=== PATIENT | female | born 1970 | race Caucasian/White ===

== ENCOUNTER 2017-09-17 13:51 | Inpatient (IN) | payer BC ==
[~2017-09-17 13:51] MED LIST: METF1000 PO; NORE0.354 PO
[2017-09-17] MEDS ORDERED: SODIUM CHLOR 0.9% 1000 ML INJ 1,000 ML IV SCH (14:02)
[2017-09-17] MEDS ORDERED: SODIUM CHLORIDE 0.9% FLUSH 10 ML FLUSH IV FLUSH PRN (14:15)
[2017-09-17] MEDS ORDERED: MORPHINE SULFATE 2 MG/ML INJ IV PUSH PRN (14:15)
[2017-09-17] MEDS ORDERED: NALOXONE HCL 0.4 MG/ML AMP IV PUSH PRN (14:15)
[2017-09-17] MEDS ORDERED: ONDANSETRON HCL 4 MG/2 ML VIAL IVP PRN (14:15)
--- NOTE | 2017-09-17 17:04 | HHI.HP ---
[facility] Service [facility] Primary Care Physician Non-Staff Admission Diagnosis Diagnoses: History of Present Illness right flank pain on and off for past one month got really worse today knew that she had renal stones had lithotripsy about at least 10years ago , had stents then too type of stone was calcium temp 98.2 here no fever home was diagnosed in june with dm, was on metformin, and then had fu visit last week- and added new med was sick over weekend and thought it was from new med for dm was given farsega stopped taking it then no prior no bleeding in stool some blood in urine, not dori hematuria not on water pills dizziness and thought maybe from farsega over weekend Review of Systems Except as stated in HPI: all other systems reviewed are Neg Past Family Social History Past Medical History dm renal stones- lithotripsies, stents hyerlipidemia Past Surgical History lithotripsies renal stents cystoscopies cataract sx Allergies: Coded Allergies: No Known Allergies (Unverified , 09/17/17) Family History mom- heart disease, graves Social History no smoking no etoh / no drugs Physical Exam Physical Exam GENERAL: This is a well-nourished, well-developed patient, in no apparent distress. SKIN: No rashes, ecchymoses or lesions. Cool and dry. HEAD: Atraumatic. Normocephalic. No temporal or scalp tenderness. EYES: Pupils equal round and reactive. Extraocular motions intact. No scleral icterus. No injection or drainage. ENT: Nose without bleeding, purulent drainage or septal hematoma. Throat without erythema, tonsillar hypertrophy or exudate. Uvula midline. Airway patent. NECK: Trachea midline. No JVD or lymphadenopathy. Supple, nontender, no meningeal signs. CARDIOVASCULAR: Regular rate and rhythm without murmurs, gallops, or rubs. RESPIRATORY: Clear to auscultation. Breath sounds equal bilaterally. No wheezes , rales, or rhonchi. GASTROINTESTINAL: Abdomen soft, non-tender, nondistended. No hepato-splenomegaly , or palpable masses. No guarding. MUSCULOSKELETAL: Extremities without clubbing, cyanosis, or edema. No joint tenderness, effusion, or edema noted. No calf tenderness. Negative Homans sign bilaterally. NEUROLOGICAL: Awake and alert. Cranial nerves II through XII intact. Motor and sensory grossly within normal limits. Five out of 5 muscle strength in all muscle groups. Normal speech. Caprini VTE Risk Assessment Caprini Risk Assessment Model Point Value = 1 Point Value = 2 Point Value = 3 Point Value = 5 Age 41-60 Minor surgery BMI > 25 kg/m2 Swollen legs Varicose veins or History of unexplained or recurrent spontaneous Oral contraceptives or hormone replacement Sepsis (< 1 month) Serious lung disease, including pneumonia (< 1 month) Abnormal pulmonary function Acute myocardial infarction Congestive heart failure (< 1 month) History of inflammatory bowel disease Medical patient at bed rest Age 61-74 Arthroscopic surgery Major open surgery (> 45 min) Laparoscopic surgery (> 45 min) Malignancy Confined to bed (> 72 hours) Immobilizing plaster cast Central venous access Age >= 75 History of VTE Family history of VTE Factor V Leiden Prothrombin [id number] Lupus anticoagulant Anticardiolipin antibodies Elevated serum homocysteine Heparin-induced thrombocytopenia Other congenital or acquired thrombophilia Stroke (< 1 month) Elective arthroplasty Hip, pelvis, or leg fracture Acute spinal cord injury (< 1 month) Prophylaxis Regimen Total Risk Factor Score Risk Level Prophylaxis Regimen 0-1 Low Early ambulation 2 Moderate Order ONE of the following: *Sequential Compression Device (SCD) *Heparin 5000 units SQ BID 3-4 Higher Order ONE of the following medications: *Heparin 5000 units SQ TID *Enoxaparin/Lovenox 40 mg SQ daily (WT < 150 kg, CrCl > 30 mL/min) *Enoxaparin/Lovenox 30 mg SQ daily (WT < 150 kg, CrCl > 10-29 mL/min) *Enoxaparin/Lovenox 30 mg SQ BID (WT < 150 kg, CrCl > 30 mL/min) AND/OR *Sequential Compression Device (SCD) 5 or more Highest Order ONE of the following medications: *Heparin 5000 units SQ TID (Preferred with Epidurals) *Enoxaparin/Lovenox 40 mg SQ daily (WT < 150 kg, CrCl > 30 mL/min) *Enoxaparin/Lovenox 30 mg SQ daily (WT < 150 kg, CrCl > 10-29 mL/min) *Enoxaparin/Lovenox 30 mg SQ BID (WT < 150 kg, CrCl > 30 mL/min) AND *Sequential Compression Device (SCD) Assessment and Plan Assessment and Plan renal stones obstructive uropathy acute renal failure dm- took metformin 1000mg today at 2p.m. with meals npo d5 fluids sliding scale coverage urology consult pain control will fu renal function resume lipitor hold metformin and long acting insulin dvt prophylaxis with scd Physician Certification Order for Inpatient Services The services are ordered in accordance with Medicare regulations or non- Medicare payer requirements, as applicable. In the case of services not specified as inpatient-only, they are appropriately provided as inpatient services in accordance with the 2-midnight benchmark. days is the estimated time the patient will need to remain in the hospital, assuming treatment plan goals are met and no additional complications. Renae Jerome MD Sep 17, 2017 17:04
[2017-09-17 17:14] VITALS: BP 151/80; PULSE 78; RESP 18; TEMP 98.2; O2SAT 99
[2017-09-17] MEDS ORDERED: GLUCAGON 1 MG/ML VIAL OTHER PRN (17:15)
[2017-09-17] MEDS ORDERED: DEXTROSE 50% IN WATER 50 ML VIAL(D50) IV PUSH PRN (17:15)
[2017-09-17] MEDS: INSULIN ASPART SUPPLEMENTAL SCALE SQ SCH ×2 (18:29→21:15)
[2017-09-17] MEDS: DEXTROSE 5% IN WATE 1000ML INJ 1,000 ML IV SCH (19:18)
[2017-09-17] MEDS: CIPROFLOXACIN 400 MG PREMIX 200 ML IV SCH (19:18)
[2017-09-17] MEDS ORDERED: ATORVASTATIN 20 MG TAB PO SCH (21:00)
[2017-09-17] MEDS: SODIUM CHLORIDE 0.9% FLUSH 10 ML FLUSH IV FLUSH SCH (21:00)
[2017-09-17 21:05] VITALS: BP 127/75; PULSE 68; RESP 16; TEMP 98.6; O2SAT 95
[2017-09-17 23:15] VITALS: BP 142/68; PULSE 69; RESP 18; TEMP 96.2; O2SAT 97
[2017-09-18] MEDS: INSULIN ASPART SUPPLEMENTAL SCALE SQ SCH ×3 (01:15→08:00)
[2017-09-18 03:46] VITALS: BP 117/68; PULSE 69; RESP 18; TEMP 96.5; O2SAT 100
[2017-09-18] MEDS: DEXTROSE 5% IN WATE 1000ML INJ 1,000 ML IV SCH (04:10)
[2017-09-18] MEDS: CIPROFLOXACIN 400 MG PREMIX 200 ML IV SCH (05:26)
[2017-09-18 07:12] VITALS: BP 119/67; PULSE 60; RESP 20; TEMP 98.1; O2SAT 96
[2017-09-18] MEDS: SODIUM CHLORIDE 0.9% FLUSH 10 ML FLUSH IV FLUSH SCH (07:59)
[2017-09-18] MEDS ORDERED: NORETHINDRONE PO SCH ×2 (09:00)
[2017-09-18 09:22] LABS: AUTOMATED NEUTROPHIL # 4.1 TH/MM3 (1.8-7.7); BASOPHIL % 0.5 % (0.0-2.0); EOSINOPHIL # 0.3 TH/MM3 (0-0.4); EOSINOPHIL % 4.2 % (0.0-4.0); HEMATOCRIT 41.8 % (35.0-46.0); HEMO FLAGS DIFF FINAL; LYMPH % 26.2 % (9.0-44.0); LYMPHOCYTE # 1.8 TH/MM3 (1.0-4.8); MEAN CELL VOLUME 94.1 FL (80.0-100.0); MEAN CORPUSCULAR HEMOGLOBIN 31.4 PG (27.0-34.0); MEAN CORPUSCULAR HGB CONC 33.4 % (32.0-36.0); MONO % 8.8 % (0.0-8.0); NEUT % 60.3 % (16.0-70.0); PLATELET COUNT 241 TH/MM3 (150-450); RED BLOOD COUNT 4.44 MIL/MM3 (4.00-5.30); RED CELL DISTRIBUTION WIDTH 13.2 % (11.6-17.2); WHITE BLOOD COUNT 6.9 TH/MM3 (4.0-11.0)
[2017-09-18 09:51] LABS: BICARBONATE 25.6 MEQ/L (21.0-32.0); POTASSIUM 3.8 MEQ/L (3.5-5.1)
[2017-09-18] MEDS ORDERED: BISACODYL 10 MG SUPP RECTAL PRN (10:00)
[2017-09-18] MEDS ORDERED: ACETAMINOPHEN/HYDROcodone 325 MG/5 MG TAB PO PRN (10:00)
[2017-09-18] MEDS ORDERED: ONDANSETRON HCL 4 MG/2 ML VIAL IVP PRN (10:00)
[2017-09-18] MEDS ORDERED: SODIUM CHLOR 0.9% 1000 ML INJ 1,000 ML IV SCH ×2 (10:00→14:15)
[2017-09-18] MEDS ORDERED: ACETAMINOPHEN/HYDROcodone 325 MG/7.5 MG TAB PO PRN (10:00)
[2017-09-18] MEDS ORDERED: SENNOSIDES 8.6 MG TAB PO PRN (10:00)
[2017-09-18] MEDS ORDERED: ACETAMINOPHEN 325 MG TAB PO PRN ×2 (10:00)
[2017-09-18] MEDS ORDERED: LACTULOSE SYRUP 20 GM/30 ML CUP PO PRN (10:00)
[2017-09-18] MEDS ORDERED: HYDROmorphone HCL PF 2 MG/ML VIAL ONE (11:51)
[2017-09-18] MEDS ORDERED: ONDANSETRON HCL 4 MG/2 ML VIAL IV PUSH ONE (12:00)
[2017-09-18] MEDS ORDERED: LACTATED RINGER'S 1000 ML INJ 1,000 ML IV ONE (12:00)
[2017-09-18] MEDS ORDERED: INSULIN ASPART SUPPLEMENTAL SCALE SQ SCH (12:00)
[2017-09-18] MEDS ORDERED: LIDOCAINE HCL 1% PF 5 ML AMPULE OTHER ONE (12:00)
[2017-09-18] MEDS ORDERED: PROPOFOL 200 MG/20 ML AMP IV ONE (12:00)
[2017-09-18] MEDS ORDERED: ePHEDrine/NS 25 MG/5 ML SYR IV ONE (12:00)
[2017-09-18] MEDS ORDERED: SODIUM CHLORIDE 0.9% 20 ML VIAL IV ONE (12:00)
[2017-09-18] MEDS ORDERED: DEXAMETHASONE SOD PHOS 4 MG/ML VIAL IV ONE (12:00)
[2017-09-18 12:22] VITALS: BP 172/83; PULSE 67; RESP 19; TEMP 98.1; O2SAT 97
--- NOTE | 2017-09-18 12:39 | MB ---
cc: ZEENAT ARREGUIN DATE OF CONSULTATION: 09/18/2017 HISTORY OF PRESENT ILLNESS Marichuy Chávez is a pleasant 47-year-old female who presented with right-sided renal colic yesterday evening associated with some nausea. A CT scan in the emergency room demonstrated a 1 cm right ureteral calculus with right-sided hydroureteronephrosis and multiple stones within the right kidney as well as in the left kidney. The patient has a known history of stones and has had prior intervention for stones in the past. She was recently diagnosed with diabetes and has been on metformin for the last 3-4 months. She states that her prior stone type was some type of calcium stone but she is unsure as to the exact type. She denies any fever or chills at the present time. PAST MEDICAL HISTORY Her medical history includes: 1. Diabetes mellitus recently diagnosed. 2. History of renal stones with prior intervention. 3. Hyperlipidemia. PAST SURGICAL HISTORY 1. Cystoscopy with stent placement followed by lithotripsy. 2. Cataract surgery. ALLERGIES She has NO KNOWN DRUG ALLERGIES. FAMILY HISTORY Noted for heart disease on her mother's side. SOCIAL HISTORY She denies smoking, drinking or using drugs. REVIEW OF SYSTEMS She notes right-sided flank pain, some nausea, no vomiting. No fever or chills. No weight loss or weight gain. Denies any history of skin lesions, gait disturbances, bleeding disorders. Denies chest pain. Denies shortness of breath. Does note some right-sided lower abdominal pain. Denies any lower extremity swelling. Denies any psychiatric problems. Denies any paresthesias. The remaining review of systems were reviewed and are negative. PHYSICAL EXAMINATION VITAL SIGNS: Temperature is 98.1, heart rate 60, respiratory rate 20, 119/67 is her blood pressure, 96% on room air. GENERAL: She is a well-developed, well-nourished 47-year-old female, in no acute distress. HEENT: Normocephalic, atraumatic. Pupils are equal, round, reactive to light. Extraocular movements intact. NECK: Supple. HEART: Regular rate and rhythm. LUNGS: Clear. ABDOMEN: Soft, nontender, nondistended. There is right-sided CVA tenderness noted. : Normal female external genitalia. EXTREMITIES: Show no evidence of cyanosis, clubbing or edema. Cranial nerves II-XII are intact. PSYCHE: Generalized mood. SKIN: No skin lesions were identified. LABORATORY VALUES White count 6.9, hemoglobin 13.9, hematocrit 41.8, platelet count is 241, sodium 139, potassium 3.8, chloride 106, CO2 25.6, BUN 13, creatinine 1.28, glucose of 127. IMAGING STUDIES Demonstrates bilateral renal calculi with a 1 cm stone in the right lower ureter causing hydroureteronephrosis. ASSESSMENT A 47-year-old female with history of nephrolithiasis, presents with a 1 cm obstructing right lower ureteral calculus with right-sided hydroureteronephrosis and bilateral renal stones. The patient will undergo cystoscopy, bilateral stent placement followed by right extracorporeal shockwave lithotripsy to remove her right ureteral stone burden. Risks and benefits were discussed including bleeding, infection, and she is willing to proceed. Zeenat MANZANARES/CHUCKY /11:49 AM /12:33 PM
[2017-09-18] MEDS ORDERED: IOHEXOL 350 MG/ML 50 ML BTL (for RAD DIAG) OTHER ONE (12:57)
[2017-09-18] MEDS ORDERED: DO NOT ADM ANY ANTICOAGULANT DRUGS PRN (13:28)
[2017-09-18] MEDS ORDERED: HYDR-3580 PO (13:28)
--- NOTE | 2017-09-18 13:29 | PD.OP ---
Operative Report Date of Surgery: Sep 18, 2017 Preoperative Diagnosis: Bilateral renal calculi with right hydroureteronephrosis and 1 cm right lower ureteral stone Postoperative Diagnosis: Same Procedure: Cystoscopy with bilateral retrograde study with bilateral double-J stent insertion followed by right extracorporeal shockwave lithotripsy Anesthesia: Gen. LMA Surgeon: Horacio Brandon Master Control Supervisor(s): None Resident Surgeon: None Operation and Findings: 47-year-old female presented to the emergency room with bilateral renal calculi with right sided hydroureteronephrosis and a 1 cm obstructing lower right ureteral stone. Decision made to bring the patient to the operating room and undergo cystoscopy and bilateral double-J stent insertion followed by right extracorporeal shockwave lithotripsy of her lower right 1 cm ureteral stone. Risk and benefits were discussed preoperatively and she was willing to proceed. Patient is brought to operating room identified by myself as Marichuy Chávez. She was prepped and draped in usual sterile fashion and placed in the dorsal lithotomy position. She received preprocedure antibiotics followed by general LMA anesthesia. Under fluoroscopic imaging guidance, the stone was visualized in the lower ureter. 22 Malawian cystoscopy was inserted bladder inman cystoscopy did not reveal any abnormalities. Left ureteral orifice was identified and a 4 Malawian Buck catheter was inserted in the left ureteral orifice and a retrograde pyelogram was performed. Stones were visualized in the kidney without any evidence of hydronephrosis or obstruction. A 0.53 sensor wire was then passed through the open-ended catheter with a good curl in the kidney. The 24 Malawian stent was slid over the wire in place with a good curl in the kidney and bladder. The wire was removed. Attention was then directed to the right ureteral orifice. A 5 Malawian opening catheter inserted into the right ureteral orifice and a retrograde pyelogram was performed. The stone was visualized in the lower ureter with a filling defect visualized. Hydroureteronephrosis was also identified. A 0.35 sensor wire was then passed through the opening catheter in place with a good curl in the kidney. A 6 Malawian 24 cm right double-J stent was then passed over the wire with a good curl in the kidney and bladder. The bladder was evacuated and the scope was removed. She was then placed in the supine position. Extracorporeal shockwave lithotripsy then proceeded with good fragmentation visualized of the lower right ureteral stone. She tolerated the procedure well and was extubated and transferred to remove stable condition. She'll follow-up in the office in a few weeks and obtain a KUB x-ray prior with determination of further intervention to remove her residual stone burden. Horacio Brandon DO Sep 18, 2017 13:29
--- NOTE | 2017-09-18 14:38 | HHI.PR ---
Subjective Remarks Follow-up obstructive uropathy. Seen in PACU. States she feels heavy from anesthesia. Denies abdominal pain. Discussed with RN, she can be discharged later today if she is tolerating by mouth, pain control with by mouth medications and ambulating. Patient aware. Follow-up renal function outpatient Objective Vitals Vital Signs Date Time Temp Pulse Resp B/P (MAP) Pulse Ox O2 Delivery O2 Flow Rate FiO2 09/18/17 14:30 69 16 121/63 (82) 92 Room Air 09/18/17 14:00 68 16 119/68 (85) 93 Room Air 09/18/17 13:45 71 16 127/72 (90) 94 Room Air 09/18/17 13:30 86 16 132/69 (90) 99 Room Air 09/18/17 13:25 97.7 86 16 133/66 (88) 99 Nasal Cannula 2 09/18/17 12:22 98.1 67 19 172/83 (112) 97 09/18/17 07:12 98.1 60 20 119/67 (84) 96 09/18/17 03:46 96.5 69 18 117/68 (84) 100 09/17/17 23:15 96.2 69 18 142/68 (92) 97 09/17/17 21:05 98.6 68 16 127/75 (92) 95 09/17/17 17:14 98.2 78 18 151/80 (103) 99 I/O 09/17/17 09/17/17 09/17/17 09/18/17 09/18/17 09/18/17 07:00 15:00 23:00 07:00 15:00 23:00 Intake Total 1200 ml Output Total 0 ml Balance 1200 ml Intake IV Total 200 ml Other 1000 ml Output Estimated Blood Loss 0 ml Result Diagram: 09/18/17 0845 09/18/17 0845 Objective Remarks GENERAL: Well-developed, well-nourished in no distress SKIN: Warm and dry. CARDIOVASCULAR: Regular rate and rhythm. RESPIRATORY: No accessory muscle use. Clear to auscultation. Breath sounds equal bilaterally. GASTROINTESTINAL: Abdomen soft, non-tender, nondistended. Hepatic and splenic margins not palpable. MUSCULOSKELETAL: Extremities without clubbing, cyanosis, or edema. No obvious deformities. Keloid LLQ NEUROLOGICAL: Awake and alert. No obvious cranial nerve deficits. Motor grossly within normal limits. Five out of 5 muscle strength in the arms and legs. Normal speech. PSYCHIATRIC: Appropriate mood and affect; insight and judgment normal. Procedures Cystoscopy with bilateral retrograde study with bilateral double-J stent insertion followed by right extracorporeal shockwave lithotripsy A/P Problem List: (1) Obstructive uropathy ICD Code: N13.9 - Obstructive and reflux uropathy, unspecified Assessment and Plan Obstructive uropathy status post Cystoscopy with bilateral retrograde study with bilateral double-J stent insertion followed by right extracorporeal shockwave lithotripsy. Stable continue IV hydration and pain management with Lortab and IV morphine and ciprofloxacin. Counseled regarding narcotic Acute kidney injury secondary to above. Nonoliguric. Avoid nephrotoxins. Outpatient follow-up Diabetes mellitus. Monitor fingerstick with sliding scale coverage. Hold metformin for now secondary to acute kidney injury Hyperlipidemia. Low-cholesterol diet Rafael prophylaxis with SCD and early ambulation Discharge Planning Discharge patient to home Condition on discharge: Improved Regular Diet as tolerated Ad Ebony activity no driving Rx written: Percocet, Levaquin and Pyridium Follow-up with primary care physician and Yonathan Johnson MD Sep 18, 2017 14:38
[2017-09-18 14:43] LABS: BICARBONATE 25.1 MEQ/L (21.0-32.0); MAGNESIUM 1.8 MG/DL (1.5-2.5)
--- NOTE | 2017-09-18 14:43 | HHI.DCPOC ---
Discharge Care Plan Diagnosis: (1) Obstructive uropathy Your Health Problems Are: Difficulty with ADL Exercise Tolerance Goals to Promote Your Health * To prevent worsening of your condition and complications * To maintain your health at the optimal level Directions to Meet Your Goals Take your medications as prescribed Follow your dietary instruction Follow activity as directed Keep your appointments as scheduled Take your immunizations and boosters as scheduled If your symptoms worsen call your PCP, if no PCP go to Urgent Care Center or Emergency Room Smoking is Dangerous to Your Health. Avoid second hand smoke Call the 24-hour hour crisis hotline for domestic abuse at Yonathan Shelley MD Sep 18, 2017 14:43
[2017-09-18 14:45] LABS: POTASSIUM 3.9 MEQ/L (3.5-5.1)
[2017-09-18] MEDS ORDERED: MORPHINE SULFATE 2 MG/ML INJ IV PRN (15:00)
[2017-09-18] MEDS ORDERED: oxyCODONE/ACETAMINOPHEN 5 MG/325 MG TAB PO PRN (15:00)
[2017-09-18] MEDS ORDERED: BELLADONNA ALKALOIDS/OPIUM 60 MG SUPP RECTAL PRN (15:00)
[2017-09-18 15:34] VITALS: BP 134/78; PULSE 80; RESP 18; TEMP 97.6; O2SAT 96
[2017-09-18] MEDS ORDERED: DOCUSATE SODIUM 50 MG/SENNA 8.6 MG TAB PO SCH (21:00)
== END 2017-09-19 00:13 | disposition home or self-care (01) | DRG 691 ==
LOC: HOR 16:05 → NEPHCDU 16:15 → OBSVTOIN 16:15 → N07B 09-18 11:41
PROVIDERS: ADMIT Internal Medicine; ATTEND Internal Medicine
PROC: BT141ZZ Fluoroscopy of Kidneys, Ureters and Bladder using Low Osmolar Contrast (ICD-10-PCS; 2017-09-18)
PROC: 0TF6XZZ Fragmentation in Right Ureter, External Approach (ICD-10-PCS; principal; 2017-09-18 12:00)
PROC: 0T788DZ Dilation of Bilateral Ureters with Intraluminal Device, Via Natural or Artificial Opening Endoscopic (ICD-10-PCS; 2017-09-18 12:00)
DX: N13.2 Hydronephrosis with renal and ureteral calculous obstruction (principal); N17.9 Acute kidney failure, unspecified; E11.9 Type 2 diabetes mellitus without complications; E78.5 Hyperlipidemia, unspecified; Z79.84 Long term (current) use of oral hypoglycemic drugs; Z87.442 Personal history of urinary calculi
CPT/HCPCS: 50590; 74176; 74420; 80048; 81001; 82948; 83735; 84702; 85025; 96361; 96374; 96375; 99281; C1769; J0744; J1100; J1170; J1885; J2270; J2405; J7030; J7070; J7120; Q9967

== ENCOUNTER → 2017-10-17 | Day surgery (SDC) | payer BC ==
[~2017-10-17] VITALS: Ht 170.2 cm; Wt 91.1 kg
[~2017-10-17] MED LIST changes: +*morphine SULFATE 8 MG/ML PERIprocedure ONLY ONE; +AMPICILLIN 1 GM/NS 100 ML IV SCH; +BELLADONNA ALKALOIDS/OPIUM 60 MG SUPP RECTAL ONE; +BELLADONNA ALKALOIDS/OPIUM 60 MG SUPP RECTAL SCH; +CHLORHEXIDINE GLUCONATE 2 % 1 PACK (2 CLOTHS) TOPICAL PRN; +CINN500C14 PO; +DO NOT ADM ANY ANTICOAGULANT DRUGS PRN; +FUROSEMIDE 20 MG/2 ML VIAL IV ONE; +GENTAMICIN INJ 240 MG in SODIUM CHLORIDE 0.9% INJ 100 ML IV SCH; +INSULIN HUMAN REGULAR 1,000 UNITS/10 ML VIAL SQ PRN; +IOHEXOL 350 MG/ML 50 ML BTL (for RAD DIAG) OTHER ONE; +LACTATED RINGER'S 1000 ML IV PRN; +LIPI40TA PO; -METF1000 PO; +METF500T PO; +METOPROLOL TARTRATE 25 MG TAB PO PRN; +MORPHINE SULFATE 2 MG/ML INJ IV PRN; +ONDANSETRON HCL 4 MG/2 ML VIAL IV PRN; +POVIDONE IODINE 5% (ANTISEPSIS KIT) 4 APPLICATIONS EACH NARE PRN; +SODIUM CHLORID 0.9% 500 ML IV PRN; +oxyCODONE/ACETAMINOPHEN 5 MG/325 MG TAB PO PRN
--- NOTE | 2017-10-17 06:50 | RADRPT ---
EXAM DATE/TIME: 10/17/2017 06:12 [facility] COMPARISON: No previous studies available for comparison. INDICATIONS : Evaluate for pneumonia, pneumothorax, or other communicable disease. Pre-op lithotripcy. MEDICAL HISTORY : Renal calculi. SURGICAL HISTORY : Stents. ENCOUNTER: Initial ACUITY: 1 day PAIN SCORE: 0/10 LOCATION: abdomen. FINDINGS: Bilateral double-J stents in place. Multiple left calcified renal stones, at least 7 in number, david uring up to 1 cm. On the right side, there are several small calcified stones which measure 1.3 cm i n aggregate, superimposed upon the mid pole. Calcified phlebolith in right pelvis. Moderate degener ative changes in the lower lumbar spine. CONCLUSION: Bilateral calcified renal stones and bilateral double-J stents. Aleksandr Randolph MD on October 17, 2017 at 6:48 Board Certified Radiologist. This report was verified electronically.
--- NOTE | 2017-10-17 11:03 | PD.OP ---
Operative Report Date of Surgery: Oct 17, 2017 Preoperative Diagnosis: Right ureteral and renal calculi Postoperative Diagnosis: Same Procedure: Cystoscopy, right retrograde pyelogram, right ureteroscopy with laser lithotripsy, stone extraction with with right double-J stent exchange Anesthesia: JETA Surgeon: Horacio Brandon Patent Searcher(s): None Resident Surgeon: None Operation and Findings: 47-year-old female with history of bilateral renal and ureteral stones. Patient underwent right extraportal shockwave lithotripsy in the past and now presents with for ureteroscopy. Risk and benefits were discussed preoperatively as well as the need for ureter procedure to remove the residual stone burden. She was willing to proceed. Patient was brought to the operating room and identified by myself as Shayna Chávez. She is placed in dorsal lithotomy position, prepped and draped in usual sterile fashion, received preprocedure antibiotics and general endotracheal tube anesthesia was administered. 22 Taiwanese cystoscope was inserted in the bladder and using the alligator grasper the right ureteral stent was brought to the urethral meatus. A 0.35 sensor wire was inserted through the stent and the stent was removed over the wire. A 5 Taiwanese opening catheter present slid over the wire up into the distal ureter and the wire was removed. A retrograde pyelogram was performed demonstrating some residual stone in the lower distal ureter as well as in the kidney. The wire was then passed through the open-ended catheter and the open-ended catheter was then removed. The rigid ureteroscope was then passed up along the wire into the distal ureter and using a 200 laser fiber at a setting of 10 and 1000 the stone was then broken up. Using the nitinol basket the stone fragments were then removed. A navigator ureteral access sheath was then passed over the wire up into the proximal ureter. The flexible ureteroscope was then utilized and passed up the ureter into the lower pole of the kidney and stone fragments were retrieved using the nitinol basket. This was also done in the upper pole. There was one stone that was approximately 7- 8 mm in size that was stuck in a upper pole calyx. Using the basket multiple pole attempts were made to try to free the stone out of the calyx but this was unsuccessful. The 200 laser fiber was then used to try to blast the stone within the small calyx and this was done to some extent. Bleeding began from this area and I was unable to retrieve all the stone fragments from the upper pole calyx. Decision made then to place a stent. A 6 Taiwanese 22 cm right double -J stent was passed over the wire leaving a good curl in the kidney and bladder. The bladder was evacuated and she was awoken next abated transferred Stable condition. In 1 month, she will need to undergo ESWL to break up the residual right upper pole fragment. After that is completed, she will need ureteroscopy on the left side in attempt to remove the residual stone burden within the left kidney in the future. Horacio Brandon DO Oct 17, 2017 11:03
[2017-10-17 13:45] VITALS: BP 103/56; PULSE 60; RESP 16; TEMP 97.4; O2SAT 95
== END | disposition home or self-care (01) ==
LOC: HSDC 05:48
PROVIDERS: ATTEND Urology
DX: N20.2 Calculus of kidney with calculus of ureter (principal); E11.9 Type 2 diabetes mellitus without complications; Z79.84 Long term (current) use of oral hypoglycemic drugs
CPT/HCPCS: 00918; 52356; 74000; 82365; 82370; 88300; C1769; J0290; J1580; J1940; J2270; J7120; Q9967

== ENCOUNTER → 2017-11-20 | Day surgery (SDC) | payer BC ==
[~2017-11-20] VITALS: Ht 170.2 cm; Wt 94.5 kg
[~2017-11-20] MED LIST changes: -*morphine SULFATE 8 MG/ML PERIprocedure ONLY ONE; -AMPICILLIN 1 GM/NS 100 ML IV SCH; -BELLADONNA ALKALOIDS/OPIUM 60 MG SUPP RECTAL ONE; -BELLADONNA ALKALOIDS/OPIUM 60 MG SUPP RECTAL SCH; -FUROSEMIDE 20 MG/2 ML VIAL IV ONE; -GENTAMICIN INJ 240 MG in SODIUM CHLORIDE 0.9% INJ 100 ML IV SCH; -INSULIN HUMAN REGULAR 1,000 UNITS/10 ML VIAL SQ PRN; -IOHEXOL 350 MG/ML 50 ML BTL (for RAD DIAG) OTHER ONE; -ONDANSETRON HCL 4 MG/2 ML VIAL IV PRN; +ONDANSETRON HCL 4 MG/2 ML VIAL IV PUSH PRN; +ceFAZolin 1,000 MG/NS 100 ML IV SCH
--- NOTE | 2017-11-20 09:43 | RADRPT ---
EXAM DATE/TIME: 11/20/2017 08:38 [facility] COMPARISON: No previous studies available for comparison. INDICATIONS : Pre-op for bilateral lithotripsy. MEDICAL HISTORY : Diabetes mellitus type II. SURGICAL HISTORY : Bilateral lithotripsy. ENCOUNTER: Subsequent ACUITY: 1 day PAIN SCORE: 0/10 LOCATION: Abdomen. FINDINGS: Two view abdomen demonstrates the patient has double-J ureteral catheters in good position. The left catheter may be slightly in the proximal ureter. There are numerous calcifications bilaterally whic h are visible on plain film. There are two collections in the right kidney and multiple stones in th e left kidney. Bowel gas pattern is normal. Bones are unremarkable. CONCLUSION: Multiple stones bilaterally. The left catheter may be slightly inferiorly displaced. Rangel Loo MD on November 20, 2017 at 9:34 Board Certified Radiologist. This report was verified electronically.
[2017-11-20 10:03] LABS: AUTOMATED NEUTROPHIL # 5.3 TH/MM3 (1.8-7.7); BASOPHIL % 0.5 % (0.0-2.0); EOSINOPHIL # 0.5 TH/MM3 (0-0.4); EOSINOPHIL % 6.1 % (0.0-4.0); HEMATOCRIT 37.9 % (35.0-46.0); HEMOGLOBIN 12.8 GM/DL (11.6-15.3); MEAN CELL VOLUME 91.3 FL (80.0-100.0); MEAN CORPUSCULAR HEMOGLOBIN 30.9 PG (27.0-34.0); MEAN CORPUSCULAR HGB CONC 33.9 % (32.0-36.0); MEAN PLATELET VOLUME 10.3 FL (7.0-11.0); MONO % 6.9 % (0.0-8.0); MONOCYTE # 0.6 TH/MM3 (0-0.9); NEUT % 62.5 % (16.0-70.0); PLATELET COUNT 276 TH/MM3 (150-450); RED BLOOD COUNT 4.15 MIL/MM3 (4.00-5.30); WHITE BLOOD COUNT 8.5 TH/MM3 (4.0-11.0)
--- NOTE | 2017-11-20 13:17 | PD.OP ---
Operative Report Date of Surgery: Nov 20, 2017 Preoperative Diagnosis: Right renal calculi Postoperative Diagnosis: Same Procedure: Right extracorporeal shockwave lithotripsy Anesthesia: MAC Surgeon: Horacio Brandon Rn Occupational(s): None Resident Surgeon: None Operation and Findings: 47-year-old female with history of bilateral renal calculi and a right ureteral calculus. In the past she underwent right ureteroscopy with laser lithotripsy and multiple stone extraction with bilateral stent insertion. There were a few residual stones on the right side which I was unable to clear with a ureteroscope. Decision was made to bring her to the operating room to undergo right extraportal shockwave lithotripsy of the remaining right renal fragments. Patient was brought to the operating room and identified by myself as Shayna Chávez. She is placed on the operating table in the supine position. She received preprocedure antibiotics and MAC anesthesia was administered. Under fluoroscopic imaging guidance the stones in the right kidney were visualized and ESWL therapy commenced. Both stones underwent lithotripsy. The stones were located in the upper and lower poles. Good fragmentation of both stones was visualized under fluoroscopic imaging. She tolerated the procedure well. She was awoken and transferred to recovery room in stable condition. She will follow-up in one month and undergo left extracorporeal shockwave lithotripsy on that side. On both her CT scan and KUB multiple stones demonstrated on the left side which may be very difficult to remove in 1 setting with ureteroscopy. Horacio Brandon DO Nov 20, 2017 13:17
[2017-11-20 13:52] VITALS: BP 141/76; PULSE 60; RESP 18; TEMP 97.5; O2SAT 100
== END | disposition home or self-care (01) ==
LOC: HSDC 08:20
PROVIDERS: ATTEND Urology
DX: N20.0 Calculus of kidney (principal)
CPT/HCPCS: 00873; 50590; 74018; 85025; J0690; J3010; J7120

== ENCOUNTER → 2018-01-01 | Day surgery (SDC) | payer BC ==
[~2018-01-01] MED LIST changes: +DEXAMETHASONE SOD PHOS 4 MG/ML VIAL IV ONE; -DO NOT ADM ANY ANTICOAGULANT DRUGS PRN; +LIDOCAINE HCL 1% PF 5 ML SYRINGE OTHER ONE; +MIDAZOLAM HCL 2 MG/2 ML VIAL ONE; -MORPHINE SULFATE 2 MG/ML INJ IV PRN; +ONDANSETRON HCL 4 MG/2 ML VIAL IV ONE; +PERC5TAB12 PO; +PROPOFOL 200 MG/20 ML AMP IV ONE; -ceFAZolin 1,000 MG/NS 100 ML IV SCH
[2018-01-01 06:22] LABS: AUTOMATED NEUTROPHIL # 4.8 TH/MM3 (1.8-7.7); BASOPHIL # 0.1 TH/MM3 (0-0.2); BASOPHIL % 0.8 % (0.0-2.0); EOSINOPHIL # 0.6 TH/MM3 (0-0.4); EOSINOPHIL % 7.1 % (0.0-4.0); HEMOGLOBIN 12.7 GM/DL (11.6-15.3); LYMPH % 24.2 % (9.0-44.0); LYMPHOCYTE # 1.9 TH/MM3 (1.0-4.8); MEAN CELL VOLUME 88.4 FL (80.0-100.0); MEAN CORPUSCULAR HEMOGLOBIN 30.3 PG (27.0-34.0); MEAN CORPUSCULAR HGB CONC 34.3 % (32.0-36.0); MEAN PLATELET VOLUME 9.9 FL (7.0-11.0); MONOCYTE # 0.5 TH/MM3 (0-0.9); NEUT % 61.9 % (16.0-70.0); PLATELET COUNT 245 TH/MM3 (150-450); RED BLOOD COUNT 4.19 MIL/MM3 (4.00-5.30); RED CELL DISTRIBUTION WIDTH 13.8 % (11.6-17.2); WHITE BLOOD COUNT 7.8 TH/MM3 (4.0-11.0)
--- NOTE | 2018-01-01 06:32 | RADRPT ---
EXAM DATE/TIME: 01/01/2018 05:52 [facility] COMPARISON: ABDOMEN KUB ONLY, November 20, 2017, 8:38. INDICATIONS : Pre op lithotripsy. MEDICAL HISTORY : None. SURGICAL HISTORY : None. ENCOUNTER: Initial ACUITY: 1 day PAIN SCORE: 0/10 LOCATION: Bilateral abdomen FINDINGS: Bilateral double-J ureteral stents in place. The proximal left ureteral stent appears slightly displa jhonatan but stable in position. Numerous bilateral renal calcifications with 2 dominant calcified calculi in the right and 7 dominant calcified calculi in the left. Nonobstructive bowel gas pattern. Osseous structures are intact. CONCLUSION: 1. Stable double-J ureteral stents with bilateral renal calculi, as above. Pavan Monahan MD on January 01, 2018 at 6:28 Board Certified Radiologist. This report was verified electronically.
--- NOTE | 2018-01-01 08:30 | PD.OP ---
Operative Report Date of Surgery: Jan 01, 2018 Preoperative Diagnosis: (1) Renal calculus, left Postoperative Diagnosis: (1) Renal calculus, left Procedure: Extracorporeal shockwave lithotripsy left upper pole renal calculus Anesthesia: General Surgeon: Garfield Ramírez Grinder Operator Surface Tool(s): None Operation and Findings: Indication for procedure: Case of a pleasant 47-year-old female with history bilateral renal calculi who presents today for left-sided shockwave lithotripsy. Operative procedure in detail: Patient was brought to the operating room suite and placed supine on the OR table. She was then placed under general anesthesia. After an appropriate timeout was undertaken I proceeded with localizing the patient's left upper pole renal calculus with fluoroscopy. There were multiple additional stones seen throughout the left kidney. I then proceeded with shockwave lithotripsy utilizing the Choudhary Piezolith mobile lithotripsy device. The patient received a total of 3000 shocks to the upper pole calculus with a maximum power level setting of 20. At conclusion of the procedure the stone was spread out somewhat consistent release a partial degree of fragmentation. The patient tolerated the procedure without complications and was subsequent transferred to the PACU in satisfactory condition. Garfield Ramírez MD Jan 01, 2018 08:30
[2018-01-01 09:53] VITALS: BP 139/80; PULSE 62; RESP 16; TEMP 97.9; O2SAT 100
== END | disposition home or self-care (01) ==
LOC: HSDC 05:27
PROVIDERS: ATTEND Urology
DX: N20.0 Calculus of kidney (principal); E11.9 Type 2 diabetes mellitus without complications; E78.00 Pure hypercholesterolemia, unspecified; Z01.818 Encounter for other preprocedural examination
CPT/HCPCS: 00872; 50590; 74018; 85025; J1100; J2250; J2405; J3010; J7120

== ENCOUNTER → 2018-02-05 | Day surgery (SDC) | payer BC ==
[~2018-02-05] VITALS: Ht 170.2 cm; Wt 92.2 kg
[~2018-02-05] MED LIST changes: +APREPITANT 40 MG CAP ONE; -DEXAMETHASONE SOD PHOS 4 MG/ML VIAL IV ONE; +DO NOT ADM ANY ANTICOAGULANT DRUGS PRN; +FUROSEMIDE 40 MG/4 ML VIAL ONE; -LIDOCAINE HCL 1% PF 5 ML SYRINGE OTHER ONE; +MORPHINE SULFATE 2 MG/ML INJ IV PRN; -ONDANSETRON HCL 4 MG/2 ML VIAL IV ONE; +ONDANSETRON HCL 4 MG/2 ML VIAL IV PRN; -ONDANSETRON HCL 4 MG/2 ML VIAL IV PUSH PRN; -PERC5TAB12 PO; +ceFAZolin 1,000 MG/NS 100 ML IV SCH
--- NOTE | 2018-02-05 07:51 | RADRPT ---
EXAM DATE/TIME: 02/05/2018 07:34 [place] COMPARISON: ABDOMEN KUB ONLY, January 01, 2018, 5:52. INDICATIONS : Pre op ESWL. MEDICAL HISTORY : None. SURGICAL HISTORY : None. ENCOUNTER: Initial ACUITY: 1 day PAIN SCORE: 0/10 LOCATION: Left abdomen. FINDINGS: Supine view of the abdomen was performed. The exam is compared to prior study of 12/24/2017. Bilateral double-J stent remain in place. The stents are unchanged in position. There continue be multiple antony cifications throughout the left kidney characteristic of kidney stones. The largest stone measures 1. 3 cm on the lower pole. There is at least 2, 1 cm stones in the midpole and there are a few smaller f aint calcifications along the upper pole. There is an 8 mm stone along the upper pole the right kidne y. These findings are all stable compared to the prior examination. The bony structures remain intact . The bowel gas pattern is within normal limits.. CONCLUSION: 1. Stable bilateral double-J stent remain in place. 2. Stable bilateral renal stones, left greater than right. Rachid Jernigan MD on February 05, 2018 at 7:45 Board Certified Radiologist. This report was verified electronically.
[2018-02-05 08:05] LABS: AUTOMATED NEUTROPHIL # 4.6 TH/MM3 (1.8-7.7); BASOPHIL # 0.1 TH/MM3 (0-0.2); BASOPHIL % 0.9 % (0.0-2.0); EOSINOPHIL # 0.4 TH/MM3 (0-0.4); EOSINOPHIL % 5.6 % (0.0-4.0); HEMOGLOBIN 12.7 GM/DL (11.6-15.3); LYMPH % 21.2 % (9.0-44.0); LYMPHOCYTE # 1.5 TH/MM3 (1.0-4.8); MEAN CORPUSCULAR HEMOGLOBIN 29.2 PG (27.0-34.0); MEAN CORPUSCULAR HGB CONC 33.5 % (32.0-36.0); MEAN PLATELET VOLUME 10.2 FL (7.0-11.0); MONO % 6.6 % (0.0-8.0); MONOCYTE # 0.5 TH/MM3 (0-0.9); NEUT % 65.7 % (16.0-70.0); PLATELET COUNT 258 TH/MM3 (150-450); RED BLOOD COUNT 4.37 MIL/MM3 (4.00-5.30); RED CELL DISTRIBUTION WIDTH 14.1 % (11.6-17.2)
--- NOTE | 2018-02-05 10:40 | PD.OP ---
Operative Report Date of Surgery: Feb 05, 2018 Preoperative Diagnosis: Left renal calculi Postoperative Diagnosis: Same Procedure: Left extracorporeal shockwave lithotripsy Anesthesia: MAC Surgeon: Horacio Brandon Inspector Bullet Slugs(s): None Resident Surgeon: None Operation and Findings: 47-year-old female with recurrent renal calculi on the left side elected to undergo repeat extracorporeal shockwave lithotripsy. Risk and benefits were discussed preoperatively and she is willing to proceed. Patient was brought to the operating room and identified by myself as Marichuy Erwin. She was placed on the operating table in the supine position. She received preprocedure antibiotics and MAC anesthesia was administered. Under fluoroscopic imaging guidance the stones were visualized and ESWL therapy commenced. The largest stone being in the lower pole was fragmented with a total of 2000 shocks and then the other 2 stones located in the mid and upper poles received 500 shocks each. This is a total of 3000 shocks. Power level was up to a level of 5. Good fragmentation of the stones were visualized under fluoroscopic imaging guidance. She tolerated the procedure well. She will follow-up in the office in a few weeks and obtain a CT scan of the abdomen and pelvis prior and will need ureteroscopy in the future to remove her residual stone burden if present. Horacio Brandon DO Feb 05, 2018 10:40
[2018-02-05 11:39] VITALS: BP 147/81; PULSE 68; RESP 18; TEMP 97.8; O2SAT 100
== END | disposition home or self-care (01) ==
LOC: HSDC 06:55
PROVIDERS: ATTEND Urology
DX: N20.0 Calculus of kidney (principal); E78.00 Pure hypercholesterolemia, unspecified; E11.9 Type 2 diabetes mellitus without complications; Z79.84 Long term (current) use of oral hypoglycemic drugs
CPT/HCPCS: 00873; 50590; 74018; 85025; J1940; J2250; J3010; J7120; J8501

== ENCOUNTER → 2018-02-21 | Day surgery (SDC) | payer BC ==
[~2018-02-21] VITALS: Ht 170.2 cm; Wt 92.3 kg
[~2018-02-21] MED LIST changes: +ACETAMINOPHEN 1000 MG/100 ML 100 ML IV ONE; -APREPITANT 40 MG CAP ONE; +DEXAMETHASONE SOD PHOS 4 MG/ML VIAL IV ONE; -FUROSEMIDE 40 MG/4 ML VIAL ONE; +GENTAMICIN SULFATE 80 MG/2 ML VIAL ONE; +GLYCOPYRROLATE 1 MG/5 ML SYRINGE IV PUSH ONE; +IOHEXOL 350 MG/ML 50 ML BTL (for RAD DIAG) OTHER ONE; +LIDOCAINE HCL 1% PF 5 ML SYRINGE OTHER ONE; -MORPHINE SULFATE 2 MG/ML INJ IV PRN; +NEOSTIGMINE 5 MG/5 ML SYRINGE IV PUSH ONE; +ONDANSETRON HCL 4 MG/2 ML VIAL IV ONE; -ONDANSETRON HCL 4 MG/2 ML VIAL IV PRN; +ROCURONIUM INJ 50 MG/5 ML SYRINGE IV PUSH ONE; -ceFAZolin 1,000 MG/NS 100 ML IV SCH; +ceFAZolin 2 GM PREMIX 50 ML ONE; -oxyCODONE/ACETAMINOPHEN 5 MG/325 MG TAB PO PRN
--- NOTE | 2018-02-21 14:21 | PD.OP ---
Operative Report Date of Surgery: Feb 21, 2018 Preoperative Diagnosis: Bilateral renal calculi Postoperative Diagnosis: Same Procedure: Cystoscopy with bilateral retrograde pyelogram studies, bilateral ureteroscopy with stone extraction, and bilateral double-J stent exchanges Anesthesia: INOCENCIO Surgeon: Horacio Brandon [employer] Teacher(s): None Resident Surgeon: None Operation and Findings: 47-year-old female with history of bilateral renal calculi who is undergone extracorporeal shockwave lithotripsy multiple times. She has had a large bilateral stone burden in today the plan was to perform right ureteroscopy and possible laser lithotripsy with stone removal and bilateral double-J stent change. She underwent a CT scan yesterday which showed bilateral hydro- nephrosis and it appeared that the stents were clogged. Decision was made to bring the patient to the operating room to undergo ureteroscopy with laser lithotripsy and stone extraction. Risk and benefits were discussed preoperatively and she is willing to proceed. Patient was brought to the operating room and identified by myself as Marichuy Chávez. She was placed in dorsal lithotomy position, prepped and draped in usual sterile fashion, received preprocedure antibiotics and general endotracheal tube anesthesia was administered. 22 Romansh cystoscope was inserted in the bladder and the right ureteral stent was identified. Using the alligator grasper is brought to the urethral meatus and then a 0.35 sensor wire was passed through the stent and up into the kidney. The stent was then removed over the wire. A navigator ureteral access sheath was then used to pass over the wire and up into the area of the UPJ. The introducer and the wire were then removed. The Stortz flexible ureteroscope was then passed up into the kidney and there was a stone visualized in the right upper pole. Using the nitinol basket the stone was extracted and removed without difficulty. The entire right calyceal system was then inspected visually and there is no evidence of any residual stones. The ureteroscope was then removed as well as the ureteral access sheath. The cystoscope was then reinserted and using alligator grasper the left ureteral stent was identified and grasped with the grasper and removed to the urethral meatus. A 0.35 sensor wire was then passed through the stent and up into the kidney and the stent was then removed over the wire. The navigator ureteral access sheath was then passed over the wire up into the UPJ region. The introducer and the wire were then removed. The ureteroscope was then passed through the ureteral access sheath up into the kidney there were a few stones identified in the midpole. Using the nitinol basket the stones were then removed. Visual inspection of the remainder of the left collecting system was performed with the ureteroscope and the stone that has been visualized in the left lower pole which is approximately 1.4 cm in size is within a calyceal diverticulum and will not be able to be extracted. She will no longer need lithotripsy for this finding on CAT scan. At this point, the cystoscope was inserted and a left retrograde pyelogram was performed demonstrating no evidence of any residual stones. This was also done on the right side. A 035 sensor wire was then passed through the cystoscope up the left ureter and then a 6 x 24 left double-J stent was placed without difficulty. This was then performed on the right side. Strings from both stents were then taped to the suprapubic area with a Tegaderm. The bladder was evacuated. She was awoken and extubated and transferred to recovery room in stable condition. She tolerated the procedure well. Stones were then sent for analysis. She will follow-up in the office on Saturday to undergo a string pole for both stents. Horacio Brandon DO Feb 21, 2018 14:21
[2018-02-21 15:35] VITALS: BP 135/80; PULSE 62; RESP 20; TEMP 97.7; O2SAT 99
== END | disposition home or self-care (01) ==
LOC: HSDC 09:23
PROVIDERS: ATTEND Urology
DX: N20.0 Calculus of kidney (principal)
CPT/HCPCS: 00862; 52332; 52352; 74420; 82365; 82370; 88300; C1769; C2617; J0131; J0690; J1100; J1580; J2250; J2405; J2710; J3010; Q9967